=== PATIENT | male | born 1950 | race Caucasian/White ===

== ENCOUNTER 2017-03-11 07:30 | Emergency (ER) | payer OTHER, MEDICARE ==
[~2017-03-11] VITALS: Ht 177.8 cm; Wt 130.5 kg
[~2017-03-11 07:30] MED LIST: ADULT AEROSOL1 EACH MC; ADVAIR HFA120 INHAL2 IH; AFRIN,GENASAL D15 ML BOTH NARES; AMARYL4 MG PO; ASPIRIN325 MG PO; DUONEB 2.5-0.5 M3 ML AEROSOL; IPRATR-ALBUTEROL3 ML IH; K-DUR20 MEQ PO; LANTUS 3 M100 UNITS1 SC; LEVAQUIN750 MG PO; LISINOPRIL20 MG PO; MEDROL DOSEPAK4 MG PO; METFORMIN HCL1000 MG PO; NEBULIZER MC; PERCOCET 5/31 TABLET PO; PRESERVISION S1 EACH PO; PROAIR HFA8.5 GM IH; TRULICITY1.5 MG/0.5 SC; VALIUM2 MG PO; XARELTO15 MG PO; ZESTRIL20 MG PO
[2017-03-11 08:09] LABS: HEMATOCRIT 46.5 % (38.0-50.0); MCH 29.8 PG (29.0-34.0); MCHC 32.3 G/DL (30.0-36.0); MCV 92.3 FL (86-99); MEAN PLAT.VOLUME 9.5 uM^3 (9.0-12.4); PLATELET COUNT 279 K/uL (156-360); RBC DIS.WIDTH-CV 16.1 % (11.8-14.6); RBC DIS.WIDTH-SD 54.9 % (39-53); RED BLOOD COUNT 5.04 M/uL (4.00-5.50)
[2017-03-11 08:28] LABS: CHLORIDE 104 mEq/L (99-109); POTASSIUM 4.7 mEq/L (3.7-5.4); SODIUM 139 mEq/L (136-147)
[2017-03-11 08:30] LABS: GLUCOSE 162 mg/dL (70-99)
[2017-03-11 08:31] LABS: ANION GAP 12 MEQ/L (2-14); TROP-I INTERPRETATION NEGATIVE; TROPONIN-I 0.03 ng/mL (0.0-0.30)
[2017-03-11 08:34] LABS: GFR ESTIMATE (CALCULATED) > 59 mL/min/
[2017-03-11 08:35] LABS: UREA NITROGEN (BUN) 14 mg/dL (9-23)
[2017-03-11] MEDS ORDERED: ALEVE220 MG PO (11:23)
[2017-03-11] MEDS ORDERED: BLUE EMU TP (11:24)
[2017-03-11] MEDS ORDERED: LEVAQUIN500 MG PO (12:12)
[2017-03-11 12:34] VITALS: BP 195/92
== END 2017-03-11 12:34 | disposition home or self-care (01) ==
LOC: EME 07:30
PROVIDERS: Emergency Medicine
DX: R07.9 Chest pain, unspecified (principal); J18.9 Pneumonia, unspecified organism; R91.8 Other nonspecific abnormal finding of lung field; R04.2 Hemoptysis; R60.0 Localized edema; M54.9 Dorsalgia, unspecified; G89.29 Other chronic pain; J45.909 Unspecified asthma, uncomplicated; E11.9 Type 2 diabetes mellitus without complications; Z79.4 Long term (current) use of insulin; Z79.82 Long term (current) use of aspirin; Z86.711 Personal history of pulmonary embolism; Z86.718 Personal history of other venous thrombosis and embolism; F17.200 Nicotine dependence, unspecified, uncomplicated
CPT/HCPCS: 71020; 71275; 80048; 84484; 85027; 93005; 93971; 94640; 99281; 99285

== ENCOUNTER → 2017-09-28 | Outpatient (CLI) | payer MEDICARE ==
[~2017-09-28] MED LIST changes: +ALEVE220 MG PO; +BLUE EMU TP; +LEVAQUIN500 MG PO
== END | disposition home or self-care (01) ==
LOC: CDC 11:31
DX: Z01.810 Encounter for preprocedural cardiovascular examination (principal); R94.31 Abnormal electrocardiogram [ECG] [EKG]
CPT/HCPCS: 93000

== ENCOUNTER 2018-04-08 08:28 | Inpatient (IN) | payer OTHER, MEDICARE ==
[~2018-04-08] VITALS: Ht 175.3 cm; Wt 128.3 kg
[~2018-04-08 08:28] MED LIST changes: +AMARYL2 MG PO; -AMARYL4 MG PO; -LANTUS 3 M100 UNITS1 SC; +TOUJEO SOL300 UNIT/1 SC
[2018-04-08 09:22] LABS: HEMATOCRIT 27.5 % (38.0-50.0); HEMOGLOBIN 9.3 G/DL (12.5-16.6); MCHC 33.8 G/DL (30.0-36.0); MCV 103.4 FL (86-99); PLATELET COUNT 432 K/uL (156-360); RBC DIS.WIDTH-CV 20.6 % (11.8-14.6); RBC DIS.WIDTH-SD 75.1 % (39-53); RED BLOOD COUNT 2.66 M/uL (4.00-5.50); WHITE BLOOD COUNT 4.6 K/uL (4.1-10.2)
[2018-04-08 09:31] LABS: CHLORIDE 110 mEq/L (99-109); POTASSIUM 5.2 mEq/L (3.7-5.4); SODIUM 140 mEq/L (136-147)
[2018-04-08 09:32] LABS: GLUCOSE 122 mg/dL (70-99)
[2018-04-08 09:36] LABS: CREATININE 1.3 mg/dL (0.6-1.3); GFR ESTIMATE (CALCULATED) 58 mL/min/ (58.99-99999)
[2018-04-08 09:37] LABS: UREA NITROGEN (BUN) 14 mg/dL (9-23)
[2018-04-08 09:43] LABS: TROP-I INTERPRETATION NEGATIVE; TROPONIN-I 0.03 ng/mL (0.0-0.30)
[2018-04-08] MEDS ORDERED: INCRUSE ELLI62.5 MCG IH (12:16)
[2018-04-08] MEDS ORDERED: TRAMADOL HCL50 MG PO (12:17)
[2018-04-08] MEDS ORDERED: HYDROCHLOROTHIA25 MG PO (12:17)
[2018-04-08] MEDS ORDERED: TROLAMINE SALIC85 GM TP (12:17)
[2018-04-08 14:16] VITALS: BP 187/89
[2018-04-08 16:00] VITALS: BP 168/85
[2018-04-08 16:02] LABS: TROP-I INTERPRETATION NEGATIVE; TROPONIN-I 0.04 ng/mL (0.0-0.30)
[2018-04-08 19:30] VITALS: BP 168/68
[2018-04-08 22:07] LABS: TROP-I INTERPRETATION NEGATIVE; TROPONIN-I 0.05 ng/mL (0.0-0.30)
[2018-04-09 00:14] VITALS: BP 140/60
[2018-04-09 03:47] VITALS: BP 133/56
[2018-04-09 06:48] LABS: HEMATOCRIT 26.4 % (38.0-50.0); HEMOGLOBIN 8.9 G/DL (12.5-16.6); MCHC 33.7 G/DL (30.0-36.0); MCV 103.9 FL (86-99); PLATELET COUNT 406 K/uL (156-360); RBC DIS.WIDTH-CV 20.7 % (11.8-14.6); RBC DIS.WIDTH-SD 76.9 % (39-53); RED BLOOD COUNT 2.54 M/uL (4.00-5.50); WHITE BLOOD COUNT 4.6 K/uL (4.1-10.2)
[2018-04-09 06:59] LABS: BASOPHIL (%) 0 % (0-1); EOSINOPHIL (%) 0 % (0-5); IMMATURE GRANULOCYTE (%) 0.4 % (0.0-0.7); LYMPHOCYTE (%) 8.4 % (15-42); LYMPHOCYTE COUNT 0.4 K/uL (1.0-2.8); MONOCYTE (%) 6.7 % (3-12); MONOCYTE COUNT 0.3 K/uL (0-0.8); NEUTROPHIL (%) 84.5 % (45-76); NEUTROPHIL COUNT 3.9 K/uL (1.8-6.4)
[2018-04-09 07:04] LABS: TROP-I INTERPRETATION NEGATIVE; TROPONIN-I 0.03 ng/mL (0.0-0.30)
[2018-04-09 07:14] LABS: ALBUMIN 3.7 G/DL (3.2-4.8); ALKALINE PHOSPHATASE 109 IU/L (3-129); ALT (GPT) 31 IU/L (3-49); AST (GOT) 17 IU/L (2-34); CHLORIDE 105 MEQ/L (99-109); CREATININE 1.5 MG/DL (0.6-1.3); GFR ESTIMATE (CALCULATED) 49 mL/min/ (58.99-99999); POTASSIUM 5.4 MEQ/L (3.7-5.4); SODIUM 136 MEQ/L (136-147); TOTAL BILIRUBIN 0.3 MG/DL (0.0-1.0); TOTAL PROTEIN 5.9 G/DL (6.4-8.3)
[2018-04-09 07:18] LABS: GLUCOSE 240 mg/dL (70-99); UREA NITROGEN (BUN) 25 mg/dL (9-23)
[2018-04-09 07:45] VITALS: BP 164/88
[2018-04-09 11:50] VITALS: BP 183/79
[2018-04-09 16:10] VITALS: BP 153/70
[2018-04-09 20:00] VITALS: BP 165/67
[2018-04-10] VITALS (7 sets, daily range): BP systolic 123–173; BP diastolic 61–76
[2018-04-10 03:56] LABS: APPEARANCE CLEAR ((CLEAR)); BILIRUBIN NEGATIVE; BLOOD MODERATE; COLOR YELLOW ((YELLOW)); GLUCOSE (STRIP) >=500; KETONES NEGATIVE; LEUKOCYTES NEGATIVE; NITRITE NEGATIVE; PROTEIN (STRIP) NEGATIVE; SPECIFIC GRAVITY 1.012 (1.000-1.030); UROBILINOGEN 0.2 MG/DL (0.2-1.0)
[2018-04-10 04:03] LABS: BACTERIA NONE SEEN /HPF; EPITHELIAL CELLS NONE SEEN /HPF; MUCUS TRACE /LPF; UCUL ADDED? NO; WHITE BLOOD CELLS 0-5 /HPF (0-5)
[2018-04-10 05:53] LABS: CREATININE 1.6 MG/DL (0.6-1.3)
[2018-04-11] VITALS: BP 123/61
[2018-04-11 03:55] VITALS: BP 121/60
[2018-04-11 06:02] LABS: HEMATOCRIT 25.5 % (38.0-50.0); HEMOGLOBIN 8.5 G/DL (12.5-16.6); MCH 34.8 PG (29.0-34.0); MCHC 33.3 G/DL (30.0-36.0); MCV 104.5 FL (86-99); PLATELET COUNT 377 K/uL (156-360); RBC DIS.WIDTH-CV 20.5 % (11.8-14.6); RBC DIS.WIDTH-SD 75.9 % (39-53); RED BLOOD COUNT 2.44 M/uL (4.00-5.50); WHITE BLOOD COUNT 6.3 K/uL (4.1-10.2)
[2018-04-11 06:20] LABS: CHLORIDE 105 MEQ/L (99-109); CREATININE 1.6 MG/DL (0.6-1.3); GFR ESTIMATE (CALCULATED) 46 mL/min/ (58.99-99999); POTASSIUM 4.7 MEQ/L (3.7-5.4); SODIUM 137 MEQ/L (136-147); UREA NITROGEN (BUN) 35 mg/dL (9-23)
[2018-04-11 06:24] LABS: GLUCOSE 63 mg/dL (70-99)
[2018-04-11 08:04] VITALS: BP 177/78
[2018-04-11 08:57] LABS: HEMOGLOBIN A1c (GLYCOHEMOGLOB) 7.1 % (Below 5.7)
[2018-04-11] MEDS ORDERED: NICOTINE PATCH1 EAC2 TD (11:09)
[2018-04-11] MEDS ORDERED: FUROSEMIDE40 MG PO (11:09)
[2018-04-11] MEDS ORDERED: LOPRESSOR25 MG PO (11:09)
[2018-04-11] MEDS ORDERED: PREDNISONE20 MG PO (11:10)
== END 2018-04-11 12:59 | disposition home or self-care (01) | DRG 291 ==
LOC: EME 08:28 → EDOF 11:55 → 5SOUTH 11:55 → ENRESERV 11:59 → 5SOUTH 14:06
PROVIDERS: Hospitalist; Nurse Practitioner Family; Physician Assistant
DX: I13.0 Hypertensive heart and chronic kidney disease with heart failure and stage 1 through stage 4 chronic kidney disease, or unspecified chronic kidney disease (principal); I50.33 Acute on chronic diastolic (congestive) heart failure; J44.1 Chronic obstructive pulmonary disease with (acute) exacerbation; J20.9 Acute bronchitis, unspecified; J44.0 Chronic obstructive pulmonary disease with (acute) lower respiratory infection; E11.22 Type 2 diabetes mellitus with diabetic chronic kidney disease; N18.3 Chronic kidney disease, stage 3 (moderate); C67.9 Malignant neoplasm of bladder, unspecified; D53.9 Nutritional anemia, unspecified; D64.81 Anemia due to antineoplastic chemotherapy; T45.1X5A Adverse effect of antineoplastic and immunosuppressive drugs, initial encounter; E11.65 Type 2 diabetes mellitus with hyperglycemia; E11.649 Type 2 diabetes mellitus with hypoglycemia without coma; I48.91 Unspecified atrial fibrillation; E66.01 Morbid (severe) obesity due to excess calories; Z68.41 Body mass index [BMI] 40.0-44.9, adult; R91.1 Solitary pulmonary nodule; G47.33 Obstructive sleep apnea (adult) (pediatric); F17.210 Nicotine dependence, cigarettes, uncomplicated; Z79.4 Long term (current) use of insulin; Z79.899 Other long term (current) drug therapy; Z86.711 Personal history of pulmonary embolism; Z91.19 Patient's noncompliance with other medical treatment and regimen; Z82.49 Family history of ischemic heart disease and other diseases of the circulatory system
CPT/HCPCS: 36415; 71046; 71275; 80048; 80053; 81003; 82565; 82948; 83036; 83880; 84484; 84520; 85025; 85027; 85379; 86850; 86900; 86901; 93005; 93306; 94640; 94640 76; 94760; 94799; 96360; 96361; 99202; 99281; 99285; J0456; J1644; J1815; J1940; J2930; J7030; J7512

== ENCOUNTER 2018-06-08 23:54 | Inpatient (IN) | payer OTHER, MEDICARE ==
[~2018-06-08] VITALS: Ht 177.8 cm; Wt 127.7 kg
[~2018-06-08 23:54] MED LIST changes: +FUROSEMIDE40 MG PO; +HYDROCHLOROTHIA25 MG PO; +INCRUSE ELLI62.5 MCG IH; +LASIX40 MG PO; +LOPRESSOR25 MG PO; +NICOTINE PATCH1 EAC2 TD; +PREDNISONE20 MG PO; +PRESERVISION T1 EACH PO; +TRAMADOL HCL50 MG PO; +TROLAMINE SALIC85 GM TP
[2018-06-09] VITALS: BP 115/53
[2018-06-09 05:56] VITALS: BP 175/73
[2018-06-09 15:41] LABS: HEMATOCRIT 34.7 % (38.0-50.0); HEMOGLOBIN 11.5 G/DL (12.5-16.6)
[2018-06-09 15:50] VITALS: BP 109/53
[2018-06-09 16:51] LABS: MCV 103.6 FL (86-99)
[2018-06-09 19:40] VITALS: BP 124/82
[2018-06-09 21:20] VITALS: BP 113/55
[2018-06-10] VITALS (8 sets, daily range): BP systolic 90–141; BP diastolic 46–64
[2018-06-10 07:28] LABS: BASOPHIL (%) 0.2 % (0-1); EOSINOPHIL (%) 0 % (0-5); HEMATOCRIT 29.3 % (38.0-50.0); IMMATURE GRANULOCYTE (%) 0.3 % (0.0-0.7); LYMPHOCYTE (%) 11.9 % (15-42); LYMPHOCYTE COUNT 1.1 K/uL (1.0-2.8); MCH 33.6 PG (29.0-34.0); MCHC 32.4 G/DL (30.0-36.0); MCV 103.5 FL (86-99); MONOCYTE (%) 8.2 % (3-12); MONOCYTE COUNT 0.8 K/uL (0-0.8); NEUTROPHIL (%) 79.4 % (45-76); NEUTROPHIL COUNT 7.3 K/uL (1.8-6.4); PLATELET COUNT 173 K/uL (156-360); RBC DIS.WIDTH-CV 13.7 % (11.8-14.6); WHITE BLOOD COUNT 9.2 K/uL (4.1-10.2)
[2018-06-10 07:29] LABS: HEMOGLOBIN 9.5 G/DL (12.5-16.6); RED BLOOD COUNT 2.83 M/uL (4.00-5.50)
[2018-06-10 07:37] LABS: CHLORIDE 101 MEQ/L (99-109); GLUCOSE 287 mg/dL (70-99); POTASSIUM 5.5 MEQ/L (3.7-5.4); SODIUM 133 MEQ/L (136-147); UREA NITROGEN (BUN) 34 mg/dL (9-23)
[2018-06-10 07:40] LABS: CREATININE 4.2 MG/DL (0.6-1.3); GFR ESTIMATE (CALCULATED) 15 mL/min/ (58.99-99999)
[2018-06-11 03:40] VITALS: BP 143/83
[2018-06-11 08:39] VITALS: BP 140/75
[2018-06-11 11:00] VITALS: BP 146/75
[2018-06-11 11:06] LABS: BASOPHIL (%) 0.2 % (0-1); EOSINOPHIL (%) 0 % (0-5); HEMOGLOBIN 9.6 G/DL (12.5-16.6); LYMPHOCYTE (%) 3.8 % (15-42); LYMPHOCYTE COUNT 0.5 K/uL (1.0-2.8); MCH 34.4 PG (29.0-34.0); MCHC 33.1 G/DL (30.0-36.0); MCV 103.9 FL (86-99); MONOCYTE (%) 4.7 % (3-12); MONOCYTE COUNT 0.6 K/uL (0-0.8); NEUTROPHIL (%) 90.3 % (45-76); NEUTROPHIL COUNT 11.3 K/uL (1.8-6.4); PLATELET COUNT 166 K/uL (156-360); RBC DIS.WIDTH-CV 13.7 % (11.8-14.6); RBC DIS.WIDTH-SD 52.5 % (39-53); RED BLOOD COUNT 2.79 M/uL (4.00-5.50); WHITE BLOOD COUNT 12.5 K/uL (4.1-10.2)
[2018-06-11 12:23] LABS: ALBUMIN 2.9 G/DL (3.2-4.8); ALKALINE PHOSPHATASE 95 IU/L (3-129); ALT (GPT) 3 IU/L (3-49); AST (GOT) 14 IU/L (2-34); CHLORIDE 104 MEQ/L (99-109); CREATININE 5.5 MG/DL (0.6-1.3); GFR ESTIMATE (CALCULATED) 11 mL/min/ (58.99-99999); GLUCOSE 232 mg/dL (70-99); POTASSIUM 5.3 MEQ/L (3.7-5.4); SODIUM 137 MEQ/L (136-147); TOTAL BILIRUBIN 0.3 MG/DL (0.0-1.0); TOTAL PROTEIN 5.2 G/DL (6.4-8.3); UREA NITROGEN (BUN) 42 mg/dL (9-23)
[2018-06-11 16:07] VITALS: BP 172/71
[2018-06-11 17:28] LABS: APPEARANCE SL.HAZY ((CLEAR)); BILIRUBIN NEGATIVE; BLOOD LARGE; COLOR YELLOW ((YELLOW)); GLUCOSE (STRIP) 50; KETONES 5; LEUKOCYTES SMALL; NITRITE NEGATIVE; PROTEIN (STRIP) 100; SPECIFIC GRAVITY 1.016 (1.000-1.030); UROBILINOGEN 0.2 MG/DL (0.2-1.0)
[2018-06-11 17:57] LABS: BACTERIA RARE /HPF; EPITHELIAL CELLS RARE /HPF; MUCUS NONE SEEN /LPF; RED BLOOD CELLS TNTC /HPF (0-5); WHITE BLOOD CELLS 0-5 /HPF (0-5)
[2018-06-11 19:11] LABS: CHLORIDE 102 MEQ/L (99-109); CREATININE 5.2 MG/DL (0.6-1.3); GFR ESTIMATE (CALCULATED) 12 mL/min/ (58.99-99999); GLUCOSE 239 mg/dL (70-99); MAGNESIUM 2.1 mg/dl (1.3-2.7); PHOSPHORUS 3.7 mg/dL (2.5-4.9); POTASSIUM 4.7 MEQ/L (3.7-5.4); SODIUM 138 MEQ/L (136-147); UREA NITROGEN (BUN) 47 mg/dL (9-23)
[2018-06-12] VITALS (8 sets, daily range): BP systolic 112–162; BP diastolic 56–90
[2018-06-12 06:13] LABS: HEMATOCRIT 25.2 % (38.0-50.0); HEMOGLOBIN 8.6 G/DL (12.5-16.6); MCH 34.1 PG (29.0-34.0); MCHC 34.1 G/DL (30.0-36.0); PLATELET COUNT 175 K/uL (156-360); RBC DIS.WIDTH-CV 13.5 % (11.8-14.6); RBC DIS.WIDTH-SD 49.3 % (39-53); RED BLOOD COUNT 2.52 M/uL (4.00-5.50); WHITE BLOOD COUNT 12.3 K/uL (4.1-10.2)
[2018-06-12 06:37] LABS: CHLORIDE 99 MEQ/L (99-109); CREATININE 5.3 MG/DL (0.6-1.3); GFR ESTIMATE (CALCULATED) 11 mL/min/ (58.99-99999); GLUCOSE 229 mg/dL (70-99); MAGNESIUM 2.2 mg/dl (1.3-2.7); PHOSPHORUS 4.4 mg/dL (2.5-4.9); POTASSIUM 4.6 MEQ/L (3.7-5.4); SODIUM 142 MEQ/L (136-147); UREA NITROGEN (BUN) 52 mg/dL (9-23)
[2018-06-13 03:27] VITALS: BP 123/61
[2018-06-13 06:15] LABS: HEMATOCRIT 26.3 % (38.0-50.0); HEMOGLOBIN 8.5 G/DL (12.5-16.6); MCH 33.5 PG (29.0-34.0); MCHC 32.3 G/DL (30.0-36.0); MCV 103.5 FL (86-99); PLATELET COUNT 184 K/uL (156-360); RBC DIS.WIDTH-CV 13.6 % (11.8-14.6); RBC DIS.WIDTH-SD 51.8 % (39-53); RED BLOOD COUNT 2.54 M/uL (4.00-5.50); WHITE BLOOD COUNT 11.4 K/uL (4.1-10.2)
[2018-06-13 06:42] LABS: ALBUMIN 2.7 G/DL (3.2-4.8); MAGNESIUM 2.5 mg/dl (1.3-2.7); PHOSPHORUS 4.7 mg/dL (2.5-4.9); UREA NITROGEN (BUN) 54 mg/dL (9-23)
[2018-06-13 06:52] LABS: CARBON DIOXIDE (BICARBONATE) > 40.0 MEQ/L (20-31); CHLORIDE 96 MEQ/L (99-109); CREATININE 3.4 MG/DL (0.6-1.3); GFR ESTIMATE (CALCULATED) 19 mL/min/ (58.99-99999); GLUCOSE 227 mg/dL (70-99); POTASSIUM 3.8 MEQ/L (3.7-5.4); SODIUM 149 MEQ/L (136-147)
[2018-06-13 06:55] VITALS: BP 143/67
[2018-06-13 11:54] VITALS: BP 119/60
[2018-06-13 16:00] VITALS: BP 101/52
[2018-06-13 17:33] LABS: CHLORIDE 93 MEQ/L (99-109); GFR ESTIMATE (CALCULATED) 22 mL/min/ (58.99-99999); GLUCOSE 134 mg/dL (70-99); POTASSIUM 3.6 MEQ/L (3.7-5.4); SODIUM 151 MEQ/L (136-147); UREA NITROGEN (BUN) 52 mg/dL (9-23)
[2018-06-13 17:39] LABS: CARBON DIOXIDE (BICARBONATE) > 40.0 MEQ/L (20-31)
[2018-06-13 19:57] VITALS: BP 127/60
[2018-06-13 22:44] LABS: CHLORIDE 91 MEQ/L (99-109); CREATININE 2.7 MG/DL (0.6-1.3); GFR ESTIMATE (CALCULATED) 25 mL/min/ (58.99-99999); GLUCOSE 164 mg/dL (70-99); POTASSIUM 3.4 MEQ/L (3.7-5.4); SODIUM 146 MEQ/L (136-147); UREA NITROGEN (BUN) 51 mg/dL (9-23)
[2018-06-13 22:47] LABS: CARBON DIOXIDE (BICARBONATE) > 40.0 MEQ/L (20-31)
[2018-06-14] VITALS (13 sets, daily range): BP systolic 106–165; BP diastolic 55–94
[2018-06-14 06:28] LABS: HEMATOCRIT 25.5 % (38.0-50.0); HEMOGLOBIN 8.1 G/DL (12.5-16.6); MCH 33.5 PG (29.0-34.0); MCHC 31.8 G/DL (30.0-36.0); MCV 105.4 FL (86-99); NRBC (%) 0.4 /100 WBC (0-0); PLATELET COUNT 219 K/uL (156-360); RBC DIS.WIDTH-CV 13.8 % (11.8-14.6); RBC DIS.WIDTH-SD 53.7 % (39-53); RED BLOOD COUNT 2.42 M/uL (4.00-5.50); WHITE BLOOD COUNT 10.7 K/uL (4.1-10.2)
[2018-06-14 06:54] LABS: ALBUMIN 2.6 G/DL (3.2-4.8); CARBON DIOXIDE (BICARBONATE) > 40.0 MEQ/L (20-31); CHLORIDE 90 MEQ/L (99-109); CREATININE 2.5 MG/DL (0.6-1.3); GFR ESTIMATE (CALCULATED) 27 mL/min/ (58.99-99999); GLUCOSE 183 mg/dL (70-99); MAGNESIUM 2.2 mg/dl (1.3-2.7); PHOSPHORUS 4.7 mg/dL (2.5-4.9); POTASSIUM 3.6 MEQ/L (3.7-5.4); SODIUM 147 MEQ/L (136-147); UREA NITROGEN (BUN) 50 mg/dL (9-23)
[2018-06-14 13:20] LABS: TROP-I INTERPRETATION POSITIVE
[2018-06-14 13:24] LABS: TROPONIN-I 1.59 ng/mL (0.0-0.30)
[2018-06-14 20:11] LABS: BASOPHIL (%) 0.3 % (0-1); EOSINOPHIL COUNT 0.2 K/uL (0-0.3); HEMOGLOBIN 9.7 G/DL (12.5-16.6); IMMATURE GRANULOCYTE (%) 0.4 % (0.0-0.7); LYMPHOCYTE (%) 14.6 % (15-42); LYMPHOCYTE COUNT 1.6 K/uL (1.0-2.8); MCH 32.9 PG (29.0-34.0); MCHC 33.4 G/DL (30.0-36.0); MONOCYTE (%) 8.5 % (3-12); MONOCYTE COUNT 0.9 K/uL (0-0.8); NEUTROPHIL (%) 74.2 % (45-76); PLATELET COUNT 217 K/uL (156-360); RBC DIS.WIDTH-CV 16.2 % (11.8-14.6); WHITE BLOOD COUNT 10.8 K/uL (4.1-10.2)
[2018-06-14 20:25] LABS: TROP-I INTERPRETATION POSITIVE
[2018-06-14 20:28] LABS: TROPONIN-I 1.54 ng/mL (0.0-0.30)
[2018-06-14 20:33] LABS: MCV 98.3 FL (86-99); RED BLOOD COUNT 2.95 M/uL (4.00-5.50)
[2018-06-15] VITALS (7 sets, daily range): BP systolic 115–160; BP diastolic 60–75
[2018-06-15 05:46] LABS: HEMATOCRIT 29.4 % (38.0-50.0); HEMOGLOBIN 9.6 G/DL (12.5-16.6); MCH 31.9 PG (29.0-34.0); MCHC 32.7 G/DL (30.0-36.0); MCV 97.7 FL (86-99); PLATELET COUNT 208 K/uL (156-360); RBC DIS.WIDTH-CV 15.5 % (11.8-14.6); RBC DIS.WIDTH-SD 55.4 % (39-53); RED BLOOD COUNT 3.01 M/uL (4.00-5.50); WHITE BLOOD COUNT 8.5 K/uL (4.1-10.2)
[2018-06-15 06:17] LABS: ALBUMIN 2.5 G/DL (3.2-4.8); CHLORIDE 88 MEQ/L (99-109); CREATININE 2.3 MG/DL (0.6-1.3); GFR ESTIMATE (CALCULATED) 30 mL/min/ (58.99-99999); GLUCOSE 147 mg/dL (70-99); MAGNESIUM 1.9 mg/dl (1.3-2.7); PHOSPHORUS 3.8 mg/dL (2.5-4.9); POTASSIUM 3.5 MEQ/L (3.7-5.4); SODIUM 136 MEQ/L (136-147); UREA NITROGEN (BUN) 44 mg/dL (9-23)
[2018-06-16 03:51] VITALS: BP 136/68
[2018-06-16 05:52] LABS: HEMOGLOBIN 10.4 G/DL (12.5-16.6); MCH 32.2 PG (29.0-34.0); MCHC 33.5 G/DL (30.0-36.0); PLATELET COUNT 221 K/uL (156-360); RBC DIS.WIDTH-CV 14.4 % (11.8-14.6); RBC DIS.WIDTH-SD 50.9 % (39-53); RED BLOOD COUNT 3.23 M/uL (4.00-5.50)
[2018-06-16 06:19] LABS: CHLORIDE 91 MEQ/L (99-109); GFR ESTIMATE (CALCULATED) 35 mL/min/ (58.99-99999); GLUCOSE 126 mg/dL (70-99); MAGNESIUM 1.9 mg/dl (1.3-2.7); PHOSPHORUS 3.3 mg/dL (2.5-4.9); POTASSIUM 3.7 MEQ/L (3.7-5.4); SODIUM 134 MEQ/L (136-147); UREA NITROGEN (BUN) 39 mg/dL (9-23)
[2018-06-16 08:12] VITALS: BP 164/70
[2018-06-16 11:35] VITALS: BP 130/62
[2018-06-16 16:45] VITALS: BP 143/68
[2018-06-16 19:37] VITALS: BP 145/67
[2018-06-17 00:06] VITALS: BP 149/67
[2018-06-17 04:07] VITALS: BP 150/70
[2018-06-17 06:43] LABS: HEMATOCRIT 30.3 % (38.0-50.0); HEMOGLOBIN 10.2 G/DL (12.5-16.6); MCH 32.4 PG (29.0-34.0); MCHC 33.7 G/DL (30.0-36.0); MCV 96.2 FL (86-99); PLATELET COUNT 241 K/uL (156-360); RBC DIS.WIDTH-CV 14.4 % (11.8-14.6); RBC DIS.WIDTH-SD 50.8 % (39-53); RED BLOOD COUNT 3.15 M/uL (4.00-5.50); WHITE BLOOD COUNT 10.2 K/uL (4.1-10.2)
[2018-06-17 07:06] LABS: CHLORIDE 93 MEQ/L (99-109); CREATININE 1.6 MG/DL (0.6-1.3); GFR ESTIMATE (CALCULATED) 46 mL/min/ (58.99-99999); GLUCOSE 99 mg/dL (70-99); POTASSIUM 3.9 MEQ/L (3.7-5.4); SODIUM 134 MEQ/L (136-147); UREA NITROGEN (BUN) 32 mg/dL (9-23)
[2018-06-17 08:00] VITALS: BP 148/71
[2018-06-17 11:15] VITALS: BP 146/71
[2018-06-17 16:10] VITALS: BP 153/72
[2018-06-18 00:44] VITALS: BP 158/74
[2018-06-18 06:58] LABS: CHLORIDE 96 MEQ/L (99-109); CREATININE 1.7 MG/DL (0.6-1.3); GFR ESTIMATE (CALCULATED) 43 mL/min/ (58.99-99999); GLUCOSE 107 mg/dL (70-99); SODIUM 135 MEQ/L (136-147); UREA NITROGEN (BUN) 28 mg/dL (9-23)
[2018-06-18 07:25] VITALS: BP 165/70
[2018-06-18] MEDS ORDERED: XARELTO20 MG PO (11:39)
[2018-06-18] MEDS ORDERED: OMNICEF300 MG PO (11:39)
[2018-06-18] MEDS ORDERED: HYDROCODON-ACE1 EAC9 PO (11:42)
[2018-06-18] MEDS ORDERED: TRAMADOL HCL50 MG PO (11:42)
[2018-06-18] MEDS ORDERED: LASIX20 MG PO (11:51)
[2018-06-18 11:59] VITALS: BP 147/78
[2018-06-18 16:30] VITALS: BP 145/63
== END 2018-06-18 18:02 | DRG 653 ==
LOC: ENRESERV 23:54 → CANRESERV 23:54 → 2SOUTH 06-09 03:56 → 5EAST 06-09 05:44 → ENRESERV 06-09 06:55 → 2SOUTH 06-09 15:15 → 5EAST 06-09 15:44
PROVIDERS: Hospitalist; Internal Medicine Cardiovascular Disease; Internal Medicine Nephrology; Physician Assistant; Urology
PROC: 0TB60ZZ Excision of Right Ureter, Open Approach (ICD-10-PCS; principal; 2018-06-09)
PROC: 00HU33Z Insertion of Infusion Device into Spinal Canal, Percutaneous Approach (ICD-10-PCS; principal; 2018-06-09)
PROC: 0DTJ0ZZ Resection of Appendix, Open Approach (ICD-10-PCS; principal; 2018-06-09)
PROC: 07BC0ZX Excision of Pelvis Lymphatic, Open Approach, Diagnostic (ICD-10-PCS; principal; 2018-06-09)
PROC: 0TB70ZZ Excision of Left Ureter, Open Approach (ICD-10-PCS; principal; 2018-06-09)
PROC: 0VT00ZZ Resection of Prostate, Open Approach (ICD-10-PCS; principal; 2018-06-09)
PROC: 0WQF0ZZ Repair Abdominal Wall, Open Approach (ICD-10-PCS; principal; 2018-06-09)
PROC: 0T1807C Bypass Bilateral Ureters to Ileocutaneous with Autologous Tissue Substitute, Open Approach (ICD-10-PCS; principal; 2018-06-09)
PROC: 0TTB0ZZ Resection of Bladder, Open Approach (ICD-10-PCS; principal; 2018-06-09)
PROC: 3E0R3BZ Introduction of Anesthetic Agent into Spinal Canal, Percutaneous Approach (ICD-10-PCS; principal; 2018-06-09)
PROC: 0VB30ZZ Excision of Bilateral Seminal Vesicles, Open Approach (ICD-10-PCS; principal; 2018-06-09)
PROC: 30233N1 Transfusion of Nonautologous Red Blood Cells into Peripheral Vein, Percutaneous Approach (ICD-10-PCS; 2018-06-14)
DX: C67.9 Malignant neoplasm of bladder, unspecified (principal); K42.9 Umbilical hernia without obstruction or gangrene; N17.9 Acute kidney failure, unspecified; K56.0 Paralytic ileus; J18.9 Pneumonia, unspecified organism; E11.22 Type 2 diabetes mellitus with diabetic chronic kidney disease; I12.9 Hypertensive chronic kidney disease with stage 1 through stage 4 chronic kidney disease, or unspecified chronic kidney disease; N18.3 Chronic kidney disease, stage 3 (moderate); I48.91 Unspecified atrial fibrillation; E87.4 Mixed disorder of acid-base balance; E87.0 Hyperosmolality and hypernatremia; E87.6 Hypokalemia; I49.3 Ventricular premature depolarization; D63.8 Anemia in other chronic diseases classified elsewhere; E66.01 Morbid (severe) obesity due to excess calories; Z68.41 Body mass index [BMI] 40.0-44.9, adult; J44.9 Chronic obstructive pulmonary disease, unspecified; J98.11 Atelectasis; G47.33 Obstructive sleep apnea (adult) (pediatric); R91.1 Solitary pulmonary nodule; R15.9 Full incontinence of feces; J34.2 Deviated nasal septum; N40.0 Benign prostatic hyperplasia without lower urinary tract symptoms; Z87.891 Personal history of nicotine dependence; Z79.4 Long term (current) use of insulin; Z86.711 Personal history of pulmonary embolism; Z80.1 Family history of malignant neoplasm of trachea, bronchus and lung
CPT/HCPCS: 36415; 71045; 71046; 74018; 80048; 80048 91; 80053; 80069; 81003; 82330; 82565; 82570; 82948; 83605; 83735; 84100; 84156; 84484; 84520; 85014; 85018; 85025; 85027; 86850; 86900; 86901; 86920; 88304; 88305; 88307; 88309; 88331; 88332; 93005; 94640; 94760; 94799; 97530 GO; 99213; J0131; J0330; J0456; J0690; J0696; J1100; J1170; J1200; J1335; J1644; J1815; J1940; J2001; J2250; J2405; J2710; J2765; J3010; J3475; J3480; J7030; J7040; J7050; J7070; J7643; P9016; S0020

== ENCOUNTER 2018-07-02 14:07 | Inpatient (IN) | payer OTHER, MEDICARE ==
[~2018-07-02] VITALS: Ht 177.8 cm; Wt 143.6 kg
[~2018-07-02 14:07] MED LIST changes: +HYDROCODON-ACE1 EAC9 PO; +LASIX20 MG PO; +OMNICEF300 MG PO; +XARELTO20 MG PO
[2018-07-02 14:24] VITALS: BP 166/73
[2018-07-02 20:45] VITALS: BP 138/91
[2018-07-02 23:49] VITALS: BP 131/74
[2018-07-03] VITALS (7 sets, daily range): BP systolic 118–137; BP diastolic 54–84
[2018-07-03 06:18] LABS: HEMATOCRIT 28.5 % (38.0-50.0); HEMOGLOBIN 9.3 G/DL (12.5-16.6); MCH 31.7 PG (29.0-34.0); MCHC 32.6 G/DL (30.0-36.0); MCV 97.3 FL (86-99); PLATELET COUNT 321 K/uL (156-360); RBC DIS.WIDTH-CV 13.9 % (11.8-14.6); RBC DIS.WIDTH-SD 49.9 % (39-53); RED BLOOD COUNT 2.93 M/uL (4.00-5.50); WHITE BLOOD COUNT 9.9 K/uL (4.1-10.2)
[2018-07-03 06:39] LABS: CHLORIDE 105 MEQ/L (99-109); CREATININE 1.6 MG/DL (0.6-1.3); GFR ESTIMATE (CALCULATED) 46 mL/min/ (58.99-99999); GLUCOSE 123 mg/dL (70-99); SODIUM 137 MEQ/L (136-147); UREA NITROGEN (BUN) 22 mg/dL (9-23)
[2018-07-03 06:42] LABS: POTASSIUM 6.1 MEQ/L (3.7-5.4)
[2018-07-03 09:22] LABS: HEMOGLOBIN A1c (GLYCOHEMOGLOB) 8.2 % (Below 5.7)
[2018-07-03 14:29] LABS: CHLORIDE 104 MEQ/L (99-109); SODIUM 137 MEQ/L (136-147)
[2018-07-03 14:34] LABS: CREATININE 1.6 MG/DL (0.6-1.3); GFR ESTIMATE (CALCULATED) 46 mL/min/ (58.99-99999); UREA NITROGEN (BUN) 21 mg/dL (9-23)
[2018-07-03 14:44] LABS: GLUCOSE 85 mg/dL (70-99); POTASSIUM 4.5 MEQ/L (3.7-5.4)
[2018-07-03 20:11] LABS: TROP-I INTERPRETATION NEGATIVE; TROPONIN-I 0.02 ng/mL (0.0-0.30)
[2018-07-04 01:22] LABS: TROP-I INTERPRETATION NEGATIVE; TROPONIN-I 0.02 ng/mL (0.0-0.30)
[2018-07-04 07:01] LABS: HEMATOCRIT 28.4 % (38.0-50.0); HEMOGLOBIN 8.9 G/DL (12.5-16.6); MCH 31.6 PG (29.0-34.0); MCHC 31.3 G/DL (30.0-36.0); MCV 100.7 FL (86-99); PLATELET COUNT 302 K/uL (156-360); RBC DIS.WIDTH-CV 14.4 % (11.8-14.6); RBC DIS.WIDTH-SD 53.1 % (39-53); RED BLOOD COUNT 2.82 M/uL (4.00-5.50); WHITE BLOOD COUNT 13.5 K/uL (4.1-10.2)
[2018-07-04 07:05] VITALS: BP 142/64
[2018-07-04 07:19] LABS: TROP-I INTERPRETATION NEGATIVE; TROPONIN-I 0.02 ng/mL (0.0-0.30)
[2018-07-04 07:37] LABS: CHLORIDE 106 MEQ/L (99-109); CREATININE 1.7 MG/DL (0.6-1.3); GFR ESTIMATE (CALCULATED) 43 mL/min/ (58.99-99999); GLUCOSE 98 mg/dL (70-99); SODIUM 138 MEQ/L (136-147); UREA NITROGEN (BUN) 23 mg/dL (9-23)
[2018-07-04 11:37] VITALS: BP 136/67
[2018-07-04 16:41] VITALS: BP 100/89
[2018-07-04 21:09] VITALS: BP 124/81
[2018-07-04 23:53] VITALS: BP 142/69
[2018-07-05 04:10] VITALS: BP 149/74
[2018-07-05 05:18] LABS: BASOPHIL (%) 0.3 % (0-1); EOSINOPHIL (%) 1.7 % (0-5); EOSINOPHIL COUNT 0.2 K/uL (0-0.3); HEMATOCRIT 28.5 % (38.0-50.0); HEMOGLOBIN 9.1 G/DL (12.5-16.6); IMMATURE GRANULOCYTE (%) 0.7 % (0.0-0.7); LYMPHOCYTE (%) 7.2 % (15-42); LYMPHOCYTE COUNT 0.8 K/uL (1.0-2.8); MCH 31.7 PG (29.0-34.0); MCHC 31.9 G/DL (30.0-36.0); MCV 99.3 FL (86-99); MONOCYTE (%) 8.6 % (3-12); NEUTROPHIL (%) 81.5 % (45-76); NEUTROPHIL COUNT 9.2 K/uL (1.8-6.4); PLATELET COUNT 314 K/uL (156-360); RBC DIS.WIDTH-CV 14.1 % (11.8-14.6); RED BLOOD COUNT 2.87 M/uL (4.00-5.50); WHITE BLOOD COUNT 11.3 K/uL (4.1-10.2)
[2018-07-05 05:55] LABS: ALBUMIN 2.6 G/DL (3.2-4.8); ALKALINE PHOSPHATASE 76 IU/L (3-129); ALT (GPT) 10 IU/L (3-49); AST (GOT) 15 IU/L (2-34); CHLORIDE 105 MEQ/L (99-109); CREATININE 1.6 MG/DL (0.6-1.3); GFR ESTIMATE (CALCULATED) 46 mL/min/ (58.99-99999); GLUCOSE 131 mg/dL (70-99); POTASSIUM 4.7 MEQ/L (3.7-5.4); SODIUM 140 MEQ/L (136-147); TOTAL BILIRUBIN 0.4 MG/DL (0.0-1.0); TOTAL PROTEIN 5.6 G/DL (6.4-8.3); UREA NITROGEN (BUN) 23 mg/dL (9-23)
[2018-07-05 08:05] VITALS: BP 145/65
[2018-07-05 11:08] VITALS: BP 169/71
[2018-07-05 19:40] VITALS: BP 164/72
[2018-07-05 23:08] VITALS: BP 133/64
[2018-07-06 03:06] VITALS: BP 123/63
[2018-07-06 05:30] LABS: HEMATOCRIT 25.3 % (38.0-50.0); HEMOGLOBIN 8.2 G/DL (12.5-16.6); MCHC 32.4 G/DL (30.0-36.0); MCV 98.8 FL (86-99); PLATELET COUNT 317 K/uL (156-360); RBC DIS.WIDTH-CV 13.9 % (11.8-14.6); RBC DIS.WIDTH-SD 50.8 % (39-53); RED BLOOD COUNT 2.56 M/uL (4.00-5.50); WHITE BLOOD COUNT 11.5 K/uL (4.1-10.2)
[2018-07-06 06:10] LABS: CHLORIDE 101 MEQ/L (99-109); CREATININE 1.6 MG/DL (0.6-1.3); GFR ESTIMATE (CALCULATED) 46 mL/min/ (58.99-99999); SODIUM 141 MEQ/L (136-147); UREA NITROGEN (BUN) 29 mg/dL (9-23)
[2018-07-06 06:13] LABS: GLUCOSE 215 mg/dL (70-99)
[2018-07-06 07:10] VITALS: BP 143/55
[2018-07-06 11:36] VITALS: BP 139/82
[2018-07-06 15:30] VITALS: BP 143/67
[2018-07-06 19:40] VITALS: BP 147/63
[2018-07-07] VITALS (8 sets, daily range): BP systolic 131–176; BP diastolic 67–87
[2018-07-08 04:45] VITALS: BP 158/74
[2018-07-08 08:00] VITALS: BP 164/84
[2018-07-08 11:54] VITALS: BP 163/73
[2018-07-08 13:51] VITALS: BP 143/65
[2018-07-08 16:45] VITALS: BP 183/72
[2018-07-08 21:48] VITALS: BP 149/67
[2018-07-09 07:05] VITALS: BP 147/75
[2018-07-09 11:00] VITALS: BP 138/66
[2018-07-09 15:00] VITALS: BP 170/74
[2018-07-09 23:03] VITALS: BP 127/61
[2018-07-10 06:06] LABS: HEMATOCRIT 23.4 % (38.0-50.0); HEMOGLOBIN 7.7 G/DL (12.5-16.6); MCH 31.6 PG (29.0-34.0); MCHC 32.9 G/DL (30.0-36.0); MCV 95.9 FL (86-99); PLATELET COUNT 344 K/uL (156-360); RBC DIS.WIDTH-CV 13.7 % (11.8-14.6); RBC DIS.WIDTH-SD 48.6 % (39-53); RED BLOOD COUNT 2.44 M/uL (4.00-5.50); WHITE BLOOD COUNT 7.8 K/uL (4.1-10.2)
[2018-07-10 06:31] LABS: CHLORIDE 97 MEQ/L (99-109); CREATININE 1.2 MG/DL (0.6-1.3); GFR ESTIMATE (CALCULATED) > 59 mL/min/ (58.99-99999); GLUCOSE 100 mg/dL (70-99); POTASSIUM 3.7 MEQ/L (3.7-5.4); SODIUM 138 MEQ/L (136-147); UREA NITROGEN (BUN) 16 mg/dL (9-23)
[2018-07-10 07:15] VITALS: BP 136/63
[2018-07-10 08:01] LABS: ALBUMIN 2.4 G/DL (3.2-4.8)
[2018-07-10 11:15] VITALS: BP 119/58
[2018-07-10 15:30] VITALS: BP 140/75
[2018-07-10 23:50] VITALS: BP 132/68
[2018-07-11 04:42] VITALS: BP 146/71
[2018-07-11 06:24] LABS: HEMATOCRIT 24.5 % (38.0-50.0); HEMOGLOBIN 8.1 G/DL (12.5-16.6); MCH 31.4 PG (29.0-34.0); MCHC 33.1 G/DL (30.0-36.0); PLATELET COUNT 363 K/uL (156-360); RBC DIS.WIDTH-CV 13.7 % (11.8-14.6); RBC DIS.WIDTH-SD 47.8 % (39-53); RED BLOOD COUNT 2.58 M/uL (4.00-5.50); WHITE BLOOD COUNT 10.7 K/uL (4.1-10.2)
[2018-07-11 07:15] VITALS: BP 121/58
[2018-07-11 11:25] VITALS: BP 121/56
[2018-07-11 11:48] LABS: C DIFF TOXIN NEGATIVE (NEGATIVE)
[2018-07-11 15:35] VITALS: BP 131/62
[2018-07-11 21:00] VITALS: BP 148/67
[2018-07-11 23:05] VITALS: BP 119/58
[2018-07-12 07:15] VITALS: BP 124/57
[2018-07-12] MEDS ORDERED: LOPRESSOR50 MG PO (10:09)
[2018-07-12] MEDS ORDERED: ENDOCET 5-3251 EACH PO (10:10)
[2018-07-12] MEDS ORDERED: LASIX20 MG PO (10:11)
[2018-07-12] MEDS ORDERED: BISAC-EVAC10 MG PR (10:12)
[2018-07-12] MEDS ORDERED: LEVEMIR100 UNIT/2 SC ×2 (10:13)
[2018-07-12] MEDS ORDERED: POLYETHYLENE GL17 GM PO (10:13)
[2018-07-12 11:20] VITALS: BP 124/60
== END 2018-07-12 14:24 | DRG 908 ==
LOC: SDC 14:07 → 4EAST 17:20 → 5EAST 17:20 → 2SOUTH 17:20 → ENRESERV 17:28 → 5EAST 20:34 → 4EAST 07-03 16:31 → ENRESERV 07-08 09:54 → 5EAST 07-08 12:40 → ENPENDDIS 07-12 → 5EAST 07-12 14:24
PROVIDERS: Hospitalist; Internal Medicine Cardiovascular Disease; Physician Assistant; Urology
PROC: 0DN80ZZ Release Small Intestine, Open Approach (ICD-10-PCS; principal; 2018-07-02)
PROC: 0DNE0ZZ Release Large Intestine, Open Approach (ICD-10-PCS; principal; 2018-07-02)
PROC: 0WQF0ZZ Repair Abdominal Wall, Open Approach (ICD-10-PCS; principal; 2018-07-02)
DX: T81.31XA Disruption of external operation (surgical) wound, not elsewhere classified, initial encounter (principal); I48.0 Paroxysmal atrial fibrillation; K56.7 Ileus, unspecified; K59.39 Other megacolon; L89.610 Pressure ulcer of right heel, unstageable; I48.2 Chronic atrial fibrillation; E87.5 Hyperkalemia; K66.0 Peritoneal adhesions (postprocedural) (postinfection); I13.0 Hypertensive heart and chronic kidney disease with heart failure and stage 1 through stage 4 chronic kidney disease, or unspecified chronic kidney disease; I50.32 Chronic diastolic (congestive) heart failure; E11.22 Type 2 diabetes mellitus with diabetic chronic kidney disease; N18.3 Chronic kidney disease, stage 3 (moderate); D64.9 Anemia, unspecified; E66.01 Morbid (severe) obesity due to excess calories; Z68.39 Body mass index [BMI] 39.0-39.9, adult; R79.1 Abnormal coagulation profile; T45.515A Adverse effect of anticoagulants, initial encounter; E78.5 Hyperlipidemia, unspecified; J44.9 Chronic obstructive pulmonary disease, unspecified; F17.200 Nicotine dependence, unspecified, uncomplicated; Z85.51 Personal history of malignant neoplasm of bladder; Z90.6 Acquired absence of other parts of urinary tract; Z90.79 Acquired absence of other genital organ(s); Z92.21 Personal history of antineoplastic chemotherapy; Z91.19 Patient's noncompliance with other medical treatment and regimen; Z93.6 Other artificial openings of urinary tract status; Z79.4 Long term (current) use of insulin
CPT/HCPCS: 71046; 74018; 74019; 74021; 80048; 80048 91; 80053; 82040; 82948; 83036; 84134; 84484; 85025; 85027; 86850; 86900; 86901; 87493; 93005; 94640; 94799; 97530 GO; 97530 GP; J0690; J1170; J1815; J1940; J2405; J2710; J2765; J3010; J7030; J7050; J7120; J7643

== ENCOUNTER 2018-07-12 12:48 | Inpatient (IN) | payer OTHER, MEDICARE ==
[~2018-07-12] VITALS: Ht 175.3 cm; Wt 123.1 kg
[~2018-07-12 12:48] MED LIST changes: +BISAC-EVAC10 MG PR; +ENDOCET 5-3251 EACH PO; +LEVEMIR100 UNIT/2 SC; +LOPRESSOR50 MG PO; +POLYETHYLENE GL17 GM PO
[2018-07-12 14:35] VITALS: BP 138/64
[2018-07-12 23:09] VITALS: BP 115/50
[2018-07-13 06:13] VITALS: BP 127/57
[2018-07-13 16:06] VITALS: BP 147/65
[2018-07-14 05:13] VITALS: BP 126/60
[2018-07-14 07:41] LABS: BASOPHIL (%) 0.5 % (0-1); BASOPHIL COUNT 0.1 K/uL (0-0.1); EOSINOPHIL (%) 2.6 % (0-5); EOSINOPHIL COUNT 0.3 K/uL (0-0.3); HEMATOCRIT 22.5 % (38.0-50.0); HEMOGLOBIN 7.5 G/DL (12.5-16.6); IMMATURE GRANULOCYTE (%) 0.9 % (0.0-0.7); LYMPHOCYTE (%) 16.7 % (15-42); LYMPHOCYTE COUNT 1.7 K/uL (1.0-2.8); MCH 31.3 PG (29.0-34.0); MCHC 33.3 G/DL (30.0-36.0); MCV 93.8 FL (86-99); MONOCYTE (%) 9.5 % (3-12); MONOCYTE COUNT 0.9 K/uL (0-0.8); NEUTROPHIL (%) 69.8 % (45-76); NEUTROPHIL COUNT 6.9 K/uL (1.8-6.4); PLATELET COUNT 369 K/uL (156-360); WHITE BLOOD COUNT 9.9 K/uL (4.1-10.2)
[2018-07-14 08:15] LABS: CK-MB 0.9 ng/mL (0.0-4.9)
[2018-07-14 09:02] LABS: ALBUMIN 2.4 G/DL (3.2-4.8); ALKALINE PHOSPHATASE 88 IU/L (3-129); ALT (GPT) 73 IU/L (3-49); AST (GOT) 65 IU/L (2-34); CHLORIDE 99 MEQ/L (99-109); CKMB RELATIVE INDEX 2.6 (0.0-3.9); CREATINE KINASE 35 IU/L (1-294); CREATININE 1.3 MG/DL (0.6-1.3); GFR ESTIMATE (CALCULATED) 58 mL/min/ (58.99-99999); GLUCOSE 134 mg/dL (70-99); SODIUM 132 MEQ/L (136-147); TOTAL BILIRUBIN 0.3 MG/DL (0.0-1.0); TOTAL CK 35 IU/L (1-294); TOTAL PROTEIN 5.2 G/DL (6.4-8.3); UREA NITROGEN (BUN) 23 mg/dL (9-23)
[2018-07-14 09:03] LABS: POTASSIUM 4.5 MEQ/L (3.7-5.4)
[2018-07-14 15:29] VITALS: BP 131/61
[2018-07-15] VITALS (13 sets, daily range): BP systolic 105–142; BP diastolic 55–66
[2018-07-15 06:11] LABS: BASOPHIL (%) 0.3 % (0-1); EOSINOPHIL (%) 3.6 % (0-5); EOSINOPHIL COUNT 0.3 K/uL (0-0.3); HEMATOCRIT 19.5 % (38.0-50.0); IMMATURE GRANULOCYTE (%) 0.6 % (0.0-0.7); LYMPHOCYTE (%) 19.5 % (15-42); LYMPHOCYTE COUNT 1.7 K/uL (1.0-2.8); MCH 30.9 PG (29.0-34.0); MCHC 32.8 G/DL (30.0-36.0); MCV 94.2 FL (86-99); MONOCYTE (%) 9.4 % (3-12); MONOCYTE COUNT 0.8 K/uL (0-0.8); NEUTROPHIL (%) 66.6 % (45-76); NEUTROPHIL COUNT 5.8 K/uL (1.8-6.4); PLATELET COUNT 375 K/uL (156-360); RBC DIS.WIDTH-CV 14.3 % (11.8-14.6); RBC DIS.WIDTH-SD 49.1 % (39-53); RED BLOOD COUNT 2.07 M/uL (4.00-5.50); WHITE BLOOD COUNT 8.7 K/uL (4.1-10.2)
[2018-07-15 06:14] LABS: HEMOGLOBIN 6.4 G/DL (12.5-16.6)
[2018-07-15 06:42] LABS: CHLORIDE 99 MEQ/L (99-109); CREATININE 1.4 MG/DL (0.6-1.3); GFR ESTIMATE (CALCULATED) 53 mL/min/ (58.99-99999); GLUCOSE 138 mg/dL (70-99); POTASSIUM 4.2 MEQ/L (3.7-5.4); SODIUM 131 MEQ/L (136-147); UREA NITROGEN (BUN) 27 mg/dL (9-23)
[2018-07-15 21:16] LABS: HEMATOCRIT 24.3 % (38.0-50.0); HEMOGLOBIN 8.2 G/DL (12.5-16.6); MCV 91.7 FL (86-99)
[2018-07-16 04:32] VITALS: BP 158/70
[2018-07-16 05:47] LABS: ABSOLUTE RETICULOCYTE CT. 0.05 M/uL (0.02-0.08); BASOPHIL (%) 0.4 % (0-1); EOSINOPHIL (%) 2.7 % (0-5); EOSINOPHIL COUNT 0.3 K/uL (0-0.3); HEMATOCRIT 25.7 % (38.0-50.0); HEMOGLOBIN 8.6 G/DL (12.5-16.6); IMM.RETIC FRACTION 24.8 % (3-19); IMMATURE GRANULOCYTE (%) 0.6 % (0.0-0.7); LYMPHOCYTE (%) 12.9 % (15-42); LYMPHOCYTE COUNT 1.3 K/uL (1.0-2.8); MCH 30.8 PG (29.0-34.0); MCHC 33.5 G/DL (30.0-36.0); MCV 92.1 FL (86-99); MONOCYTE (%) 7.4 % (3-12); MONOCYTE COUNT 0.7 K/uL (0-0.8); NEUTROPHIL COUNT 7.4 K/uL (1.8-6.4); PLATELET COUNT 390 K/uL (156-360); RBC DIS.WIDTH-CV 14.7 % (11.8-14.6); RBC DIS.WIDTH-SD 50.2 % (39-53); RETIC HGB EQUIVALENT 30.3 (28-36); RETICULOCYTE COUNT 1.9 % (0.5-1.8); WHITE BLOOD COUNT 9.8 K/uL (4.1-10.2)
[2018-07-16 05:52] LABS: RED BLOOD COUNT 2.79 M/uL (4.00-5.50)
[2018-07-16 06:10] LABS: CHLORIDE 102 MEQ/L (99-109); CREATININE 1.2 MG/DL (0.6-1.3); GFR ESTIMATE (CALCULATED) > 59 mL/min/ (58.99-99999); GLUCOSE 148 mg/dL (70-99); LACTATE DEHYDROGENASE 200 IU/L (20-246); POTASSIUM 4.7 MEQ/L (3.7-5.4); SODIUM 135 MEQ/L (136-147); UREA NITROGEN (BUN) 26 mg/dL (9-23)
[2018-07-16 07:17] LABS: C-REACTIVE PROTEIN 90.2 MG/L (0-10); IRON 46 MCG/DL (35-150); TRANSFERRIN (TIBC) 170.5 mg/dL (215-380); TRANSFERRIN SATUR. 27 % (20-55)
[2018-07-16 07:47] LABS: ERTH.SED.RATE 88 MM/HR (0-20)
[2018-07-16 07:53] LABS: FERRITIN 913 NG/ML (22-322)
[2018-07-16 17:00] VITALS: BP 148/74
[2018-07-17 05:03] VITALS: BP 127/59
[2018-07-17 06:25] LABS: MCH 30.9 PG (29.0-34.0); MCHC 33.3 G/DL (30.0-36.0); MCV 92.7 FL (86-99); PLATELET COUNT 353 K/uL (156-360); RBC DIS.WIDTH-CV 14.6 % (11.8-14.6); RBC DIS.WIDTH-SD 49.5 % (39-53); RED BLOOD COUNT 2.59 M/uL (4.00-5.50); WHITE BLOOD COUNT 7.8 K/uL (4.1-10.2)
[2018-07-17 15:32] VITALS: BP 119/58
[2018-07-18 15:31] VITALS: BP 125/59
[2018-07-19 04:49] VITALS: BP 115/62
[2018-07-19 06:43] LABS: BASOPHIL (%) 0.4 % (0-1); EOSINOPHIL COUNT 0.3 K/uL (0-0.3); HEMOGLOBIN 7.8 G/DL (12.5-16.6); IMMATURE GRANULOCYTE (%) 0.7 % (0.0-0.7); LYMPHOCYTE (%) 19.3 % (15-42); LYMPHOCYTE COUNT 1.4 K/uL (1.0-2.8); MCH 30.5 PG (29.0-34.0); MCHC 32.5 G/DL (30.0-36.0); MCV 93.8 FL (86-99); MONOCYTE COUNT 0.7 K/uL (0-0.8); NEUTROPHIL (%) 66.6 % (45-76); NEUTROPHIL COUNT 4.8 K/uL (1.8-6.4); PLATELET COUNT 394 K/uL (156-360); RBC DIS.WIDTH-CV 14.2 % (11.8-14.6); RBC DIS.WIDTH-SD 48.3 % (39-53); RED BLOOD COUNT 2.56 M/uL (4.00-5.50); WHITE BLOOD COUNT 7.3 K/uL (4.1-10.2)
[2018-07-19 07:08] LABS: CHLORIDE 104 MEQ/L (99-109); CREATININE 1.3 MG/DL (0.6-1.3); GFR ESTIMATE (CALCULATED) 58 mL/min/ (58.99-99999); GLUCOSE 112 mg/dL (70-99); POTASSIUM 4.7 MEQ/L (3.7-5.4); SODIUM 138 MEQ/L (136-147); UREA NITROGEN (BUN) 20 mg/dL (9-23)
[2018-07-19 15:46] VITALS: BP 147/68
[2018-07-20 05:08] VITALS: BP 130/58
[2018-07-20 06:49] LABS: BASOPHIL (%) 0.5 % (0-1); EOSINOPHIL (%) 4.1 % (0-5); EOSINOPHIL COUNT 0.3 K/uL (0-0.3); HEMATOCRIT 25.4 % (38.0-50.0); HEMOGLOBIN 8.2 G/DL (12.5-16.6); IMMATURE GRANULOCYTE (%) 0.6 % (0.0-0.7); LYMPHOCYTE (%) 20.1 % (15-42); LYMPHOCYTE COUNT 1.6 K/uL (1.0-2.8); MCH 30.5 PG (29.0-34.0); MCHC 32.3 G/DL (30.0-36.0); MCV 94.4 FL (86-99); MONOCYTE COUNT 0.7 K/uL (0-0.8); NEUTROPHIL (%) 65.7 % (45-76); NEUTROPHIL COUNT 5.1 K/uL (1.8-6.4); PLATELET COUNT 394 K/uL (156-360); RBC DIS.WIDTH-CV 14.2 % (11.8-14.6); RBC DIS.WIDTH-SD 48.4 % (39-53); RED BLOOD COUNT 2.69 M/uL (4.00-5.50); WHITE BLOOD COUNT 7.8 K/uL (4.1-10.2)
[2018-07-20 07:23] LABS: CHLORIDE 105 MEQ/L (99-109); CREATININE 1.4 MG/DL (0.6-1.3); GFR ESTIMATE (CALCULATED) 53 mL/min/ (58.99-99999); GLUCOSE 125 mg/dL (70-99); POTASSIUM 4.8 MEQ/L (3.7-5.4); SODIUM 139 MEQ/L (136-147); UREA NITROGEN (BUN) 20 mg/dL (9-23)
[2018-07-20 15:43] VITALS: BP 131/64
[2018-07-21 05:53] VITALS: BP 130/57
[2018-07-21 09:26] VITALS: BP 126/63
[2018-07-21 15:26] VITALS: BP 129/59
[2018-07-22 05:31] VITALS: BP 122/58
[2018-07-22 16:57] VITALS: BP 136/62
[2018-07-23 04:30] VITALS: BP 112/59
[2018-07-23 15:13] VITALS: BP 136/61
[2018-07-24 05:46] VITALS: BP 116/57
[2018-07-24 15:08] VITALS: BP 135/69
[2018-07-25 04:41] VITALS: BP 122/60
[2018-07-25 15:31] VITALS: BP 133/61
[2018-07-26 05:31] VITALS: BP 125/59
[2018-07-26 15:34] VITALS: BP 128/60
[2018-07-27 05:50] VITALS: BP 135/66
[2018-07-27 06:43] LABS: BASOPHIL (%) 0.4 % (0-1); EOSINOPHIL (%) 2.4 % (0-5); EOSINOPHIL COUNT 0.2 K/uL (0-0.3); HEMATOCRIT 27.7 % (38.0-50.0); HEMOGLOBIN 8.8 G/DL (12.5-16.6); IMMATURE GRANULOCYTE (%) 0.5 % (0.0-0.7); LYMPHOCYTE (%) 13.8 % (15-42); LYMPHOCYTE COUNT 1.4 K/uL (1.0-2.8); MCH 29.6 PG (29.0-34.0); MCHC 31.8 G/DL (30.0-36.0); MCV 93.3 FL (86-99); MONOCYTE (%) 8.8 % (3-12); MONOCYTE COUNT 0.9 K/uL (0-0.8); NEUTROPHIL (%) 74.1 % (45-76); NEUTROPHIL COUNT 7.6 K/uL (1.8-6.4); PLATELET COUNT 416 K/uL (156-360); RBC DIS.WIDTH-CV 14.3 % (11.8-14.6); RBC DIS.WIDTH-SD 48.1 % (39-53); RED BLOOD COUNT 2.97 M/uL (4.00-5.50); WHITE BLOOD COUNT 10.2 K/uL (4.1-10.2)
[2018-07-27 07:02] LABS: CHLORIDE 102 MEQ/L (99-109); CREATININE 1.4 MG/DL (0.6-1.3); GFR ESTIMATE (CALCULATED) 53 mL/min/ (58.99-99999); GLUCOSE 167 mg/dL (70-99); POTASSIUM 4.9 MEQ/L (3.7-5.4); SODIUM 134 MEQ/L (136-147); UREA NITROGEN (BUN) 24 mg/dL (9-23)
[2018-07-27 16:25] VITALS: BP 136/62
[2018-07-28 04:50] VITALS: BP 140/68
[2018-07-28] MEDS ORDERED: LOPRESSOR50 MG PO (12:38)
[2018-07-28] MEDS ORDERED: DOCUSATE SODIU100 MG PO (12:38)
[2018-07-28] MEDS ORDERED: GABAPENTIN100 MG PO (12:38)
[2018-07-28] MEDS ORDERED: LASIX20 MG PO (12:38)
[2018-07-28] MEDS ORDERED: FLUCONAZOLE100 MG PO (12:38)
[2018-07-28] MEDS ORDERED: POLYETHYLENE GL17 GM PO (12:38)
[2018-07-28] MEDS ORDERED: LISINOPRIL20 MG PO (12:38)
[2018-07-28] MEDS ORDERED: XARELTO20 MG PO (12:38)
[2018-07-28] MEDS ORDERED: ERGOCALCIF50000 UNIT PO (12:38)
[2018-07-28] MEDS ORDERED: PANTOPRAZOLE SO40 MG PO (12:38)
== END 2018-07-28 14:40 | disposition home health service (06) | DRG 945 ==
LOC: 3WEST 12:48 → ENPENDDIS 07-28 → 3WEST 07-28 14:40
PROVIDERS: Family Medicine Sports Medicine; Psychiatry & Neurology Neurology
PROC: F07M0ZZ Range of Motion and Joint Mobility Treatment of Musculoskeletal System - Whole Body (ICD-10-PCS; principal; 2018-07-15)
PROC: 30233N1 Transfusion of Nonautologous Red Blood Cells into Peripheral Vein, Percutaneous Approach (ICD-10-PCS; 2018-07-15)
DX: R53.1 Weakness (principal); Z68.41 Body mass index [BMI] 40.0-44.9, adult; I50.32 Chronic diastolic (congestive) heart failure; I13.0 Hypertensive heart and chronic kidney disease with heart failure and stage 1 through stage 4 chronic kidney disease, or unspecified chronic kidney disease; E11.52 Type 2 diabetes mellitus with diabetic peripheral angiopathy with gangrene; D62 Acute posthemorrhagic anemia; B37.81 Candidal esophagitis; G72.81 Critical illness myopathy; K56.7 Ileus, unspecified; I82.411 Acute embolism and thrombosis of right femoral vein; E66.01 Morbid (severe) obesity due to excess calories; I48.0 Paroxysmal atrial fibrillation; J44.9 Chronic obstructive pulmonary disease, unspecified; N18.3 Chronic kidney disease, stage 3 (moderate); E11.22 Type 2 diabetes mellitus with diabetic chronic kidney disease; E11.42 Type 2 diabetes mellitus with diabetic polyneuropathy; E78.5 Hyperlipidemia, unspecified; F17.210 Nicotine dependence, cigarettes, uncomplicated; G89.18 Other acute postprocedural pain; Z60.2 Problems related to living alone; H54.8 Legal blindness, as defined in USA; K21.9 Gastro-esophageal reflux disease without esophagitis; D63.8 Anemia in other chronic diseases classified elsewhere; K20.8 Other esophagitis; K29.70 Gastritis, unspecified, without bleeding; C67.9 Malignant neoplasm of bladder, unspecified; L89.612 Pressure ulcer of right heel, stage 2; G47.9 Sleep disorder, unspecified; L89.629 Pressure ulcer of left heel, unspecified stage; R13.10 Dysphagia, unspecified; G47.00 Insomnia, unspecified; Z79.01 Long term (current) use of anticoagulants; Z79.4 Long term (current) use of insulin; Z90.6 Acquired absence of other parts of urinary tract; Z90.79 Acquired absence of other genital organ(s); Z93.6 Other artificial openings of urinary tract status
CPT/HCPCS: 74220; 80048; 80053; 82306; 82550; 82553; 82607; 82728; 82948; 83010 90; 83540; 83615; 84466; 85014; 85018; 85025; 85027; 85046; 85651; 86140; 86850; 86900; 86901; 86920; 93005; 93970; 94640; 97110 GO; 97530 GP; J1815; J1940; P9016